=== PATIENT | male | born 1950 | race Caucasian/White ===

== ENCOUNTER 2016-09-27 14:37 | Emergency (ER) | payer OTHER ==
[2016-09-27 15:01] VITALS: BP 134/87; PULSE 67; TEMP 98; BMI 29.5
--- NOTE | 2016-09-27 15:04 | PDOC ---
History of Present Illness - General History Source: Patient Exam Limitations: No Limitations - History of Present Illness Initial Comments: 09/27/16 15:05 The patient is a 66 year old male with a significant past medical history of HLD , who presents to the ED with 10 days of sinus headaches, nasal congestion, cough w/ yellow phlegm, and chest tightness. Patient states he has been taking mucinex with some alleviation. He has also been taking amoxicillin (self-prescribed) for four days. Patient denies SOB, ear pain, fever, chills, nausea, vomiting, diarrhea. Patient denies seasonal allergies, but often has sinus infections. Patient denies recent travels, sick contacts. Patient denies smoking cigarettes, drug use. Allergies: Iodine <Tevin Verduzco - Last Filed: 09/27/16 15:05> - General History Source: Patient, Old Records Exam Limitations: No Limitations <Hailey Wang - Last Filed: 09/27/16 15:11> - General Chief Complaint: Respiratory Stated Complaint: CONGESTION POST NASAL DRIP COUGH Time Seen by Provider: 09/27/16 14:54 Past History <Tevin Verduzco - Last Filed: 09/27/16 15:05> - Past Medical History Other medical history: DENIES - Surgical History Appendectomy: Yes - Psycho/Social/Smoking Cessation Hx Anxiety: No Suicidal Ideation: No Smoking Status: No Smoking History: Never smoked Number of Cigarettes Smoked Daily: 0 Information on smoking cessation initiated: No Hx Alcohol Use: Yes (SOCIAL) Drug/Substance Use Hx: No Substance Use Type: Alcohol <Hailey Wang - Last Filed: 09/27/16 15:11> - Past Medical History Allergies/Adverse Reactions: Allergies Allergy/AdvReac Type Severity Reaction Status Date / Time IODINE Allergy Intermediate Hives Uncoded 09/27/16 14:40 Home Medications: Ambulatory Orders NK [No Known Home Medication] 09/27/16 Review of Systems - Review of Systems Able to Perform ROS?: Yes Comments:: 09/27/16 15:05 GENERAL/CONSTITUTIONAL: No fever or chills. No weakness. HEAD, EYES, EARS, NOSE AND THROAT: No change in vision. No ear pain or discharge. No sore throat. CARDIOVASCULAR: + chest tightness. No shortness of breath. RESPIRATORY: + cough w/ yellow phlegm. No wheezing, or hemoptysis. GASTROINTESTINAL: No nausea, vomiting, diarrhea or constipation. GENITOURINARY: No dysuria, frequency, or change in urination. MUSCULOSKELETAL: No joint or muscle swelling or pain. No neck or back pain. SKIN: No rash NEUROLOGIC: + headache. No vertigo, loss of consciousness, or change in strength /sensation. ENDOCRINE: No increased thirst. No abnormal weight change. HEMATOLOGIC/LYMPHATIC: No anemia, easy bleeding, or history of blood clots. ALLERGIC/IMMUNOLOGIC: No hives or skin allergy. <Tevin Verduzco - Last Filed: 09/27/16 15:05> *Physical Exam - Vital Signs Last Vital Signs Temp Pulse Resp BP Pulse Ox 98 F 67 16 134/87 98 09/27/16 14:38 09/27/16 14:38 09/27/16 14:38 09/27/16 14:38 09/27/16 14:38 - Physical Exam Comments: 09/27/16 15:06 GENERAL: Awake, alert, and fully oriented, in no acute distress HEAD: No signs of trauma EYES: PERRLA, EOMI, sclera anicteric, conjunctiva clear ENT: Auricles normal inspection, hearing grossly normal, nares patent, oropharynx clear without exudates. Moist mucosa NECK: Normal ROM, supple, no lymphadenopathy, JVD, or masses LUNGS: Breath sounds equal, clear to auscultation bilaterally. No wheezes, and no crackles HEART: Regular rate and rhythm, normal S1 and S2, no murmurs, rubs or gallops ABDOMEN: Soft, nontender, normoactive bowel sounds. No guarding, no rebound. No masses EXTREMITIES: Normal range of motion, no edema. No clubbing or cyanosis. No cords, erythema, or tenderness NEUROLOGICAL: Cranial nerves II through XII grossly intact. Normal speech, normal gait SKIN: Warm, Dry, normal turgor, no rashes or lesions noted. <Tevin Verduzco - Last Filed: 09/27/16 15:05> - Vital Signs Last Vital Signs Temp Pulse Resp BP Pulse Ox 98 F 67 16 134/87 98 09/27/16 14:38 09/27/16 14:38 09/27/16 14:38 09/27/16 14:38 09/27/16 14:38 <Hailey Wang - Last Filed: 09/27/16 15:11> Medical Decision Making - Medical Decision Making 09/27/16 15:02 66-year-old male with history of hyperlipidemia presents the emergency department with 10 day history of nasal congestion and cough with postnasal drip. Differential diagnosis includes but is not limited to: Viral URI, seasonal ALLERGIES. Plan: 1. I have advised the patient to take [id number] Claritin or Zyrtec 2. Follow-up with primary care physician 3. Return to the emergency department if symptoms persist, worsen, or new symptoms arise. <Hailey Wang - Last Filed: 09/27/16 15:11> *DC/Admit/Observation/Transfer - Attestations Scribe Attestion: 09/27/16 15:06 Documentation prepared by Tevin Verduzco, acting as clinical laboratory medical director for Hailey Wang MD, . <Tevin Verduzco - Last Filed: 09/27/16 15:05> - Discharge Dispostion Admit: No - Attestations Physician Attestion: 09/27/16 15:03 I, Dr. Hailey Wang, attest that the scribes documentation that appears above has been prepared under my direction and personally reviewed by me in its entirety. I confirmed that the note above accurately reflects all work, treatment, procedures, and medical decision-making performed by me. <Hailey Wang - Last Filed: 09/27/16 15:11> Diagnosis at time of Disposition: Seasonal allergic rhinitis - Discharge Dispostion Disposition: HOME Condition at time of disposition: Stable - Patient Instructions Additional Instructions: You may take Claritin or Zyrtec [id number] for nasal congestion/ congestive symptoms. Please follow-up with your primary care physician within the next 3-5 days and return to the emergency department if your symptoms persist, worsen, or new symptoms arise.
== END 2016-09-27 15:10 | disposition home or self-care (01) ==
LOC: FER 14:37
DX: J30.2 Other seasonal allergic rhinitis (principal); E78.5 Hyperlipidemia, unspecified
CPT/HCPCS: 99282-25

== ENCOUNTER 2018-04-08 11:38 | Emergency (ER) | payer OTHER, MEDICARE ==
--- NOTE | 2018-04-08 11:41 | PDOC ---
History of Present Illness - General Chief Complaint: Cold Symptoms Stated Complaint: SINUS PAIN Time Seen by Provider: 04/08/18 11:40 History Source: Patient Exam Limitations: No Limitations - History of Present Illness Initial Comments: 68 yo M with a hx of sinusitis and HTN presents to the emergency department with nasal congestion that has been ongoing since 2018. Per the patient, he has a hx of sinusitis infections without ENT follow up or evaluation. He was placed on a 10 day course of augmentin with improvement in symptoms. At the end of it, his symptoms returned. Used flonase for the last 2 days and has had an associated headache right frontal without radiation that is pressure like. Endorses yellow nasal discharge but denies the following: fever, chills, nausea, vomiting, ears and throat pain, chest pain, SOB, dysuria, hematuria, abdominal pain, diarrhea, and hematochezia. Meds: metoprolol, lisinopril Allergies: cipro Social: Denies tobacco, alcohol, and substance abuse Shx: Denies surgical history 04/11/18 08:34 Past History - Past Medical History Allergies/Adverse Reactions: Allergies Allergy/AdvReac Type Severity Reaction Status Date / Time IODINE Allergy Intermediate Hives Uncoded 04/08/18 11:39 Home Medications: Ambulatory Orders Fluticasone Prop 0.05% Nasal [Flonase -] 1 - 2 spray NS DAILY #1 spray.pump Loratadine [Claritin -] 10 mg PO DAILY #30 tablet 04/08/18 Pseudoephedrine HCl [Sudafed] 30 mg PO QID PRN #16 tablet 04/08/18 - Surgical History Appendectomy: Yes - Suicide/Smoking/Psychosocial Hx Smoking Status: No Smoking History: Never smoked Number of Cigarettes Smoked Daily: 0 Hx Alcohol Use: Yes (SOCIAL) Drug/Substance Use Hx: No Substance Use Type: Alcohol Review of Systems - Review of Systems Able to Perform ROS?: Yes Is the patient limited Tamazight proficient: No Constitutional: No: Chills, Diaphoresis, Fever HEENTM: Yes: Nose Congestion. No: Eye Pain, Recent change in vision, Ear Pain, Nose Pain, Throat Pain, Throat Swelling, Mouth Pain Respiratory: No: Cough, Shortness of Breath, SOB with Exertion, Hemoptysis Cardiac (ROS): No: Chest Pain, Lightheadedness, Palpitations, Syncope, Chest Tightness ABD/GI: No: Constipated, Diarrhea, Nausea, Poor Appetite, Poor Fluid Intake, Rectal Bleeding, Vomiting, Tarry Stools : No: Burning, Dysuria, Hematuria, Urgency Musculoskeletal: No: Back Pain, Joint Pain, Neck Pain Integumentary: No: Erythema, Flushing, Lesions, Pruritus, Rash Neurological: Yes: Headache. No: Numbness, Tingling, Tremors, Ataxia, Dizziness Psychiatric: No: Change in Appetite Endocrine: No: Unexplained Weight Gain Hematologic/Lymphatic: No: Anemia *Physical Exam - Physical Exam General Appearance: Yes: Nourished, Appropriately Dressed. No: Apparent Distress, Intoxicated HEENT: positive: EOMI, ALISON, Normal Voice, Symmetrical, Pharyngeal Erythema, Nasal Congestion, Sinus Tenderness, Hearing Grossly Normal. negative: Pale Conjunctivae, Scleral Icterus (R), Scleral Icterus (L), Muffled/Hoarse voice, Tonsillar Exudate, Tonsillar Erythema, Rhinorrhea, Hearing Decreased, Excessive drooling Neck: positive: Trachea midline. negative: Tender, Lymphadenopathy (R), Lymphadenopathy (L), Tender lateral, Tender midline Respiratory/Chest: positive: Lungs Clear, Normal Breath Sounds. negative: Chest Tender, Respiratory Distress, Accessory Muscle Use, Crackles, Rales, Rhonchi, Stridor, Wheezing, Hyperresonant Cardiovascular: positive: Regular Rhythm, Regular Rate, S1, S2. negative: Systolic Murmur Gastrointestinal/Abdominal: positive: Normal Bowel Sounds, Flat, Soft. negative : Tender, Distended, Guarding, Rebound, Tenderness, Hernia Lymphatic: negative: Adenopathy Musculoskeletal: positive: Normal Inspection. negative: CVA Tenderness, Vertebral Tenderness Extremity: positive: Normal Capillary Refill, Normal Inspection, Normal Range of Motion. negative: Tender, Swelling, Calf Tenderness Integumentary: positive: Normal Color, Dry, Warm. negative: Diaphoresis, Moist , Hives, Petechiae, Rash, Swelling Neurologic: positive: manager agricultural II-XII NML intact, Fully Oriented, Alert, Normal Mood/ Affect, Normal Response, Motor Strength 5/5. negative: EOM Palsy, Facial Droop , Sensory Deficit Medical Decision Making - Medical Decision Making 68 yo M with a hx of sinusitis and HTN presents to the emergency department with nasal congestion that has been ongoing since 2018. Initial vitals Initial Vital Signs Temp Pulse Resp BP Pulse Ox 98.0 F 78 18 124/77 100 04/08/18 11:39 04/08/18 11:39 04/08/18 11:39 04/08/18 11:39 04/08/18 11:39 Work up: ddx: sinusitis, tension headache, migraine, URI interventions: sudafed, claritin, flonase, and ibuprofen. likely this is sinusitis given patients presentation and hx/physical exam. will prescribe augmentin, claritin, and flonase for outpatient use with follow up with PMD. Dispo: Discharge., *DC/Admit/Observation/Transfer Diagnosis at time of Disposition: Rhinitis Qualifiers: Rhinitis type: unspecified Qualified Code(s): J31.0 - Chronic rhinitis - Discharge Dispostion Disposition: HOME Condition at time of disposition: Stable Decision to Admit order: No - Prescriptions Prescriptions: Fluticasone Prop 0.05% Nasal [Flonase -] 1 - 2 spray NS DAILY #1 spray.pump Loratadine [Claritin -] 10 mg PO DAILY #30 tablet Pseudoephedrine HCl [Sudafed] 30 mg PO QID PRN #16 tablet PRN Reason: Nasal Congestion - Referrals Referrals: Jay Cervantes [Primary Care Provider] - Fortunato Arnold MD [Staff Physician] - - Patient Instructions Printed Discharge Instructions: DI for Allergic Rhinitis, DI for Common Cold Additional Instructions: you were seen in the emergency department for the evaluation of your nasal congestion. we prescribed you medications to be taken as directed. please follow up with your primary medical doctor in 1 week and please follow up with the ears nose throat physician Dr. Arnold within 1 week after discharge. please return to the emergency department if you have worsening symptoms or new concerning symptoms such as fever and chills, purulent discharge from the nose, and shortness of breath. thank you. - Post Discharge Activity
[2018-04-08 11:42] VITALS: BMI 32.1
--- NOTE | 2018-04-08 11:54 | PDOC ---
Attending Attestation - Resident Resident Name: AvaDarren - ED Attending Attestation I have performed the following: I have examined & evaluated the patient, The case was reviewed & discussed with the resident, I agree w/resident's findings & plan, Exceptions are as noted - HPI HPI: 04/08/18 12:11 68 yo male ho allergic sinusitis here with c/o frontal sinus pain, congestion. sneezing. no f/c pain not worse with bending forward. unsure if he has a cold or if allergic trigger. no cough. has used flonase in the past but has not been using it recently. does not currently follow with ENT. no discoloration to nasal discharge. - Physicial Exam PE: 04/08/18 12:12 awake alert frontal sinus tenderness. bilat nasal turbinate mild enlargment bogginess. post pharynx with cobblestoning. lungs clear bilaterally heart rrr no mrg . - Medical Decision Making 04/08/18 12:13 pt with sinusitis. will treat with flonase, claritin or zyrtec and pseudophed. told to follow up with ENT dr Arnold. and pcp.
[2018-04-08] MEDS ORDERED: FLUTICASONE PROP 0.05% 16 GM NASAL SPRAY NS ONE (11:57)
[2018-04-08] MEDS ORDERED: IBUPROFEN 600 MG TABLET (FP) PO ONE ×2 (11:57→12:06)
[2018-04-08] MEDS ORDERED: LORATADINE 10 MG TABLET PO ONE (11:57)
[2018-04-08] MEDS ORDERED: PSEUDOEPHEDRINE HCL 30 MG TABLET PO ONE (12:00)
[2018-04-08] MEDS ORDERED: PSEUDOEPHEDRINE HCL 30 MG TABLET ONE (12:06)
[2018-04-08] MEDS ORDERED: LORATADINE 10 MG TABLET ONE (12:06)
[2018-04-08 12:08] VITALS: BP 124/77; PULSE 78; TEMP 98
== END 2018-04-08 12:26 | disposition home or self-care (01) ==
LOC: FER 11:38
DX: J31.0 Chronic rhinitis (principal); I10 Essential (primary) hypertension
CPT/HCPCS: 99281-25

== ENCOUNTER 2022-02-21 08:33 | Emergency (ER) | payer OTHER ==
[2022-02-21 08:43] VITALS: BP 100/64; PULSE 103; RESP 18; BMI 32.1
[2022-02-21 09:01] VITALS: TEMP 99.8
== END 2022-02-21 09:13 | disposition home or self-care (01) ==
LOC: FER 08:33
DX: U07.1 COVID-19 (principal)
CPT/HCPCS: 0241U-QW; 99283-25

== ENCOUNTER 2023-12-05 07:18 | Emergency (ER) | payer OTHER, MEDICARE ==
[2023-12-05 07:44] VITALS: BP 113/72; PULSE 70; RESP 18; TEMP 97.5; BMI 32.1
== END 2023-12-05 08:00 | disposition home or self-care (01) ==
LOC: FER 07:18
DX: R09.81 Nasal congestion (principal); R05.9 Cough, unspecified; M79.10 Myalgia, unspecified site; R53.81 Other malaise; J06.9 Acute upper respiratory infection, unspecified; U07.1 COVID-19
CPT/HCPCS: 0241U-QW; 99283-25

== ENCOUNTER 2024-08-05 08:00 | Emergency (ER) | payer OTHER ==
[2024-08-05 08:04] VITALS: BP 110/73; PULSE 77; RESP 18; TEMP 98.1; BMI 32.1
[2024-08-05] MEDS ORDERED: FAMOTIDINE 20 MG TABLET ONE (08:12)
[2024-08-05] MEDS ORDERED: INDOMETHACIN 25 MG CAPSULE ONE (08:12)
[2024-08-05] MEDS ORDERED: CEPHALEXIN MONOHYDRATE 500 MG CAPSULE (UD) ONE (08:12)
[2024-08-05] MEDS: INDOMETHACIN 50 MG CAPSULE PO ONE (08:18)
[2024-08-05] MEDS: FAMOTIDINE 10 MG TABLET PO ONE (08:18)
[2024-08-05] MEDS: CEPHALEXIN 250 MG/5 ML ORAL SUSPENSION PO ONE (08:18)
== END 2024-08-05 08:40 | disposition home or self-care (01) ==
LOC: FER 08:00
DX: L03.031 Cellulitis of right toe (principal); M10.9 Gout, unspecified
CPT/HCPCS: 36415; 84550; 99283-25